=== PATIENT | female | born 1970 | race Caucasian/White ===

== ENCOUNTER 2021-07-30 15:47 | Emergency (ER) | payer SELFPAY ==
[2021-07-30 15:48] VITALS: BP 94/64; PULSE 89; RESP 16; TEMP 37; O2SAT 99; BMI 19.8
--- NOTE | 2021-07-30 16:23 | EX.ED.DYSGE1 ---
HPI History of Present Illness Chief Complaint: Shortness of Breath Informant: patient Onset/Context/Timing Onset: Today Context: Sudden Onset Timing: Intermittent and Lasts (Approximately 5 minutes) Quality: Numbness, tingling Location: Bilateral upper extremities Worsened by: Nothing Relieved by: Rest Narrative Narrative: Patient presents with numbness and tingling to her hands and lightheadedness that began today. Patient states it began rather suddenly. Patient states it has been intermittent throughout the day. Patient states that it lasts approximately 5 minutes when it comes on. Patient states nothing makes it worse. Patient states it is better with rest. Patient admits to some shortness of breath with it. Patient also admits to some subjective chills. Patient denies any cough. Patient denies any chest pain. PFSH PFSH Medical History no medical history no medical history Allergy/AdvReac Type Severity Reaction Status Date / Time Penicillins Allergy PT UNSURE Verified 07/30/21 15:48 OF REACTION Surgical History Hx of tubal ligation Social History Smoking Status: Never smoker ROS ROS ED Constitutional Constitutional ED: Reports chills and subjective; Denies fever(s) Eyes Eyes: Denies blurry vision or change in vision ENT ENT ED: Denies rhinorrhea or sore throat Cardiovascular Cardiovascular: Denies chest pain or palpitations Respiratory/Chest Respiratory/Chest: Reports dyspnea; Denies cough Gastrointestinal Gastrointestinal: Denies nausea or vomiting Genitourinary Genitourinary ED: Denies dysuria or hematuria Musculoskeletal Musculoskeletal: Reports back pain; Denies neck pain Integumentary Denies abscess or rash Neurologic Neurologic: Reports headache(s) and weakness Allergic/Immunologic Allergic/Immunologic ED: Denies mouth swelling or urticaria EXAM Physical Exam Const Vital Signs: 07/30/21 15:48 07/30/21 16:46 07/30/21 16:53 Temperature 98.6 F Temperature Source Temporal Pulse Rate 89 77 Respiratory Rate 16 18 Respiratory Effort Normal Non-Labored Respiratory Depth Normal Respiratory Pattern Normal Normal Blood Pressure 94/64 Blood Pressure Mean 74 Pulse Ox 99 Oxygen Delivery Method Room Air 07/30/21 20:40 Temperature Temperature Source Pulse Rate 89 Respiratory Rate 15 Respiratory Effort Respiratory Depth Respiratory Pattern Blood Pressure 98/71 Blood Pressure Mean 80 Pulse Ox 97 Oxygen Delivery Method Room Air Positive well nourished and well developed General Appearance ED: well developed HEENT Reports moist mucous membranes Neck supple and no JVD Resp normal respiratory effort and clear to auscultation bilaterally Cardio regular rate, regular rhythm and no murmurs GI normal to inspection, nondistended, normoactive bowel sounds and non-tender Palpation: soft Extremity normal to inspection General Extremety ED: Negative for edema or tenderness General Extremity: Negative for edema Neuro oriented x3, CN's II-XII intact bilaterally and no sensory deficits noted Sensorium / Orientation: alert Motor Exam: strength 5/5 throughout Psych mental status grossly normal Skin no rashes or lesions noted MDM MDM MDM Narrative Medical decision making narrative: Patient was given a DuoNeb aerosol here. Portable 1 view chest x-ray was obtained. On my interpretation, lung skinner are clear. There is normal cardiac silhouette. Bony thorax is normal. There is no acute process noted. Radiologist also interpreted the x-ray and agrees. EKG was obtained. On my interpretation, it showed a normal sinus rhythm with a rate of 77. HI interval, QRS interval, and QTc intervals were all normal. [place] was normal. There are nonspecific ST-T wave changes. CBC shows a mild leukocytosis of 15.1. Comprehensive metabolic profile was within normal limits. Urinalysis shows positive nitrites with 3+ bacteria. Leukocyte esterase was 25 there were 0-5 white blood cells. Urine culture was ordered. Patient is feeling better on reevaluation. Patient was advised of her findings. Patient was instructed to follow-up with her primary care physician in 5 to 7 days. Patient understood and was agreeable with the plan. All questions were answered. Lab Data Attestation: I reviewed the patient's lab results. Labs: Laboratory Results - last 24 hr 07/30/21 07/30/21 07/30/21 16:40 16:40 18:00 WBC 15.1 H RBC 4.92 Hgb 14.1 Hct 42.1 MCV 85.6 MCH 28.7 MCHC 33.5 RDW Std Deviation 42.0 RDW Coeff of Roni 13.4 Plt Count 235 MPV 9.2 Immature Gran % (Auto) 0.400 Neut % (Auto) 93.5 H Lymph % (Auto) 1.4 L Cottle % (Auto) 4.4 Eos % (Auto) 0.1 Baso % (Auto) 0.2 Absolute Neuts (auto) 14.2 H Absolute Lymphs (auto) 0.21 L Nucleated RBC % 0 Differential Comment Platelet Estimate ADEQUATE RBC Morphology NORM C+C Sodium 138 Potassium 4.2 Chloride 107 Carbon Dioxide 25.0 Anion Gap 6 BUN 30 H Creatinine 0.82 Estim Creat Clear Calc 57.65 Est GFR (MDRD) Af Amer 95 Est GFR (MDRD) Non-Af 78 BUN/Creatinine Ratio 36.7 H Glucose 121 H Calcium 9.1 Total Bilirubin 1.30 H AST 20 ALT 20 Alkaline Phosphatase 64 Total Protein 7.4 Albumin 4.3 Globulin 3.1 Albumin/Globulin Ratio 1.4 Urine Color Yellow Urine Clarity Clear Urine pH 5.0 Ur Specific [place] 1.020 Urine Protein 15 H Urine Glucose (UA) Normal Urine Ketones 50 H Urine Occult Blood 50 H Urine Nitrite Positive H Urine Bilirubin Negative Urine Urobilinogen Normal Ur Leukocyte Esterase 25 H Urine RBC 0-5 SEEN Urine WBC 0-5 SEEN Ur Squamous Epith Cells 0-5 SEEN Urine Bacteria 3+ Urine Mucus 0 SEEN Radiography Chest X-Ray - ED: 1 View, Read by ED Physician, Read by Radiologist and No Acute Disease Diagnostic Testing: Clinical Impression(s) from Imaging Studies Chest X-Ray 07/30/21 17:10 IMPRESSION: No acute findings. Thoracic dextroscoliosis. Electronically Signed: Inna Oviedo MD at 18:01 EDT , EKG Initial EKG: Attestation: I personally reviewed and interpreted this EKG as follows: Interpretation: Sinus Rhythm (77), No Acute Injury Pattern and Non-Specific ST Changes Discharge Plan Triage Chief Complaint: Shortness of Breath ED Provider: Cam Steiner Dx/Rx/DC Orders Clinical Impression: Dyspnea Instructions: ED Dyspnea Stand Alone Forms: ED Work / School Excuse Primary Care Provider: Care Physician,No Primary Referrals: Melisa Khan MD [STAFF PHYSICIAN] - 3-5 Days Care Physician,No Primary [Primary Care Provider] - Disposition Disposition: Home, Self Care Discharge Date/Time: 07/30/21 20:43
--- NOTE | 2021-07-30 16:27 | EKG12_ITS ---
Test Reason : SOB Blood Pressure : / mmHG Vent. Rate : 077 BPM Atrial Rate : 077 BPM P-R Int : 160 ms QRS Dur : 078 ms QT Int : 414 ms P-R-T Axes : 069 083 001 degrees QTc Int : 468 ms Normal sinus rhythm Nonspecific ST abnormality Abnormal ECG Confirmed by ANTONY BARKER, RON ([id number]), editor in chief newspaper RADHA MARTINEZ ([id number]) on 08/03/2021 9:11:20 AM Referred By: RENALDO Confirmed By:RON HARDY MD
[2021-07-30] MEDS: Ipratropium/Albuterol Sulfate 3 ML AMPUL.NEB INHALATION (16:52)
[2021-07-30 16:53] VITALS: PULSE 77; RESP 18
[2021-07-30 17:00] LABS: Absolute Lymphocyte Count 0.21 X10^3/uL (0.83-4.51); Absolute Neutrophil Count 14.2 X10^3/uL (2.0-7.7); Basophil# 0.03 X10^3/uL; Basophil% 0.2 % (0-1); Eosinophil# 0.01 X10^3/uL; Eosinophils% 0.1 % (0-5); Hematocrit 42.1 % (37-47); Hemoglobin 14.1 g/dL (12.0-15.0); Lymphocyte # 0.21 X10^3/ul (0.83-4.51); Lymphocyte % 1.4 % (19-41); Mean Corp Hgb Conc 33.5 g/dL (32-36); Mean Corpuscular Hgb 28.7 pg (27.0-32.0); Mean Corpuscular Volume 85.6 fL (81-99); Mean Platelet Vol. 9.2 fl (6.2-12.0); Monocyte# 0.66 X10^3/uL; Monocyte% 4.4 % (0-10); NRBC Flagged by Analyzer 0 % (0-5); Neutrophil # 14.17 X10^3/uL (2.7-7.7); Neutrophil % 93.5 % (47-70); POSITIVE DIFFERENTIAL YES; Platelet Count 235 K/mm3 (150-450); RBC Distribution Width CV 13.4 % (11.6-14.6); Red Blood Count 4.92 M/mm3 (4.2-5.4); White Blood Count 15.1 K/mm3 (4.4-11.0)
--- NOTE | 2021-07-30 17:10 | RAD_ITS ---
STUDY: X-RAY CHEST REASON FOR EXAM: Female, 51 years old. Dyspnea TECHNIQUE: Single AP portable view of the chest. COMPARISON: None. FINDINGS: The lungs are clear and expanded. There is no demonstrated pleural abnormality. Normal size heart. Normal mediastinum and jordan. Normal visualized pulmonary arteries. Normal visualized aortic arch and descending thoracic aorta. Moderate thoracic dextroscoliosis. Soft tissues and bony structures are otherwise unremarkable. RAD/Chest 1 View (Portable) IMPRESSION: No acute findings. Thoracic dextroscoliosis. Electronically Signed: Inna Oviedo MD at 18:01 EDT Reading Location ID and State: [id number] / Tel , Service support ,
[2021-07-30 17:11] LABS: Differential Indicated SCAN CRITERIA MET
[2021-07-30 17:18] LABS: ALB/GLOB Ratio 1.4 RATIO (0.9-2.4); AST(SGOT) 20 U/L (15-37); Alanine Aminotransfer ALT/SGPT 20 U/L (13-56); Albumin, Serum 4.3 g/dL (3.2-5.0); Alkaline Phosphatase 64 U/L (45-117); Anion Gap 6 (5-15); BUN 30 mg/dL (7-18); BUN/Creat Ratio 36.7 RATIO (10-20); Calcium,Total 9.1 mg/dL (8.5-10.1); Chloride 107 mmol/L (98-107); Creatinine, Serum 0.82 mg/dL (0.55-1.02); EST Glomerular Filtration Rate 78 mL/min (>60); Est Glom Filt Rate - Afr Amer 95 mL/min (>60); Estimated Creatinine Clearance 57.65 ml/min; Globulin 3.1 g/dL (2.2-4.2); Glucose 121 mg/dL (74-106); Potassium 4.2 mmol/L (3.5-5.1); Protein, Total 7.4 g/dL (6.4-8.2); Sodium Level 138 mmol/L (136-145)
[2021-07-30 17:35] LABS: Platelet Estimate ADEQUATE (ADEQ); Red Cell Morphology NORM C+C NORMAL (NORM C&C)
[2021-07-30 18:07] LABS: Mucous, Urine 0 SEEN /hpf (<or=2+)
[2021-07-30 18:43] LABS: Color, Urine Yellow (Yellow); Glucose, Dipstick Normal (Normal); Ketone-Dipstick 50 mg/dl (Negative); Leukocyte Esterase-Dipstick 25 /ul (Negative); Nitrite-Dipstick Positive (Negative); Occult Blood-Urine 50 /ul (Negative); Protein-Dipstick 15 mg/dl (Negative); Urine Bilirubin Dipstick Negative (Negative); Urine Clarity Clear (Clear); Urine Urobilinogen Normal (Normal)
[2021-07-30 20:23] LABS: Bacteria 3+ /hpf (None Seen); Red Blood Cells-Urine 0-5 SEEN /hpf (0-5); Squamous Epithelial Cells - UA 0-5 SEEN /hpf (5-10); White Blood Cells 0-5 SEEN /hpf (0-5)
[2021-07-30 20:40] VITALS: BP 98/71; PULSE 81; PULSE 89; RESP 15; O2SAT 97
== END 2021-07-30 20:43 | disposition home or self-care (01) ==
PROVIDERS: Emergency Provider Emergency Medicine; Visit Provider Emergency Medicine
DX: R06.00 Dyspnea, unspecified (principal); R42 Dizziness and giddiness; R20.0 Anesthesia of skin
CPT/HCPCS: 71045; 80053; 81001; 85025; 93005; 94640; 99283; A4216